=== PATIENT | male | born 1990 | race Hispanic/Latino ===

== ENCOUNTER 2023-03-24 13:45 | Emergency (ER) | payer SELFPAY ==
[~2023-03-24] VITALS: Ht 188 cm; Wt 82.0 kg
[2023-03-24 16:04] VITALS: BP 126/77
[2023-03-24 17:46] LABS: URINE BILIRUBIN - DIPSTICK Negative (NEGATIVE); URINE BLOOD DIPSTICK Trace-lysed (NEGATIVE); URINE COLOR Yellow; URINE GLUCOSE - DIPSTICK Negative (NEGATIVE); URINE KETONE 15 mg/dL (NEGATIVE); URINE LEUK ESTERASE Negative (NEGATIVE); URINE NITRITE - DIPSTICK Negative (Negative); URINE PROTEIN - DIPSTICK Negative (NEG-TRACE); URINE SPECIFIC GRAVITY 1.015; URINE UROBILINOGEN - DIPSTICK 0.2 E.U./dL (0.2)
[2023-03-24] MEDS ORDERED: NAPROXEN500 MG PO (18:38)
[2023-03-24 19:30] VITALS: BP 126/77
== END 2023-03-24 19:30 | disposition home or self-care (01) | DRG 730 ==
LOC: ED 13:45
PROVIDERS: Nurse Practitioner
DX: N50.811 Right testicular pain (principal)